=== PATIENT | female | born 1965 | race Hispanic/Latino ===

== ENCOUNTER 2017-08-13 10:21 | Emergency (ER) | payer OTHER ==
[2017-08-13] MEDS ORDERED: Adacel (T-DAP) 0.5 ML VIAL ONE ×2 (10:43→10:44)
--- NOTE | 2017-08-13 11:11 | RAD ---
THREE VIEW INDEX DIGIT LEFT HAND: Indication: Crush injury. FINDINGS: No fracture or dislocation. No radiopaque foreign body. IMPRESSION: No acute osseous abnormality of the index digit of the left hand. POS: [facility]
[2017-08-13] MEDS ORDERED: Bacitracin Zinc 1 Packet ONE (11:22)
== END 2017-08-13 11:43 | disposition home or self-care (01) ==
LOC: NAV ERS 10:21
DX: S61.211A Laceration without foreign body of left index finger without damage to nail, initial encounter (principal); I10 Essential (primary) hypertension; E78.5 Hyperlipidemia, unspecified; Z79.82 Long term (current) use of aspirin; Z79.899 Other long term (current) drug therapy; W31.89XA Contact with other specified machinery, initial encounter
CPT/HCPCS: 90471; 90715